=== PATIENT | female | born 1990 | race Caucasian/White ===

== ENCOUNTER 2017-06-19 11:03 | Emergency (ER) | payer MEDICAID ==
[2017-06-19 11:41] LABS: ADD MAN DIFF? NO
[2017-06-19 11:43] LABS: BASO % 1 % (0-3); EOS # 0.1 x10^3/uL (0.0-0.7); EOS % 1 % (0-3); HEMATOCRIT 47.3 % (36.0-47.0); HEMOGLOBIN 16.1 g/dL (12.0-15.5); LYMPH # 2.3 x10^3/uL (1.0-4.8); LYMPH % 23 % (24-48); MEAN CORPUSCULAR HEMOGLOBIN 32 pg (25-35); MEAN CORPUSCULAR HGB CONC 34 g/dL (31-37); MEAN CORPUSCULAR VOLUME 94 fL (79-100); MONO # 0.6 x10^3/uL (0.0-1.1); MONO % 6 % (0-9); NEUT # 7.1 x10^3uL (1.8-7.7); NEUT % 70 % (31-73); PLATELET COUNT 269 x10^3/uL (140-400); RED BLOOD COUNT 5.04 x10^6/uL (3.50-5.40); RED CELL DISTRIBUTION WIDTH 12.6 % (11.5-14.5); WHITE BLOOD COUNT 10.1 x10^3/uL (4.0-11.0)
[2017-06-19 12:01] LABS: PARTIAL THROMBOPLASTIN TIME 34 SEC (24-38); PROTHROMBIN TIME PATIENT 12.8 SEC (11.7-14.0)
[2017-06-19 12:03] LABS: ANION GAP 9 (6-14); BLOOD UREA NITROGEN 12 mg/dL (7-20); CALCIUM 8.4 mg/dL (8.5-10.1); CARBON DIOXIDE 27 mmol/L (21-32); CHLORIDE 103 mmol/L (98-107); CREATININE 0.8 mg/dL (0.6-1.0); GLUCOSE 88 mg/dL (70-99); POTASSIUM 3.9 mmol/L (3.5-5.1); SODIUM 139 mmol/L (136-145)
[2017-06-19 12:07] LABS: ALBUMIN 3.8 g/dL (3.4-5.0); ALK PHOS 61 U/L (46-116); ALT (SGPT) 20 U/L (14-59); AST (SGOT) 16 U/L (15-37); DIRECT BILIRUBIN 0.1 mg/dL (0.0-0.2); LIPASE 77 U/L (73-393); TOTAL BILIRUBIN 0.4 mg/dL (0.2-1.0); TOTAL PROTEIN 7.3 g/dL (6.4-8.2)
[2017-06-19 12:32] LABS: CKMB INDEX 0.5 % (0-4); CKMB MASS < 0.5 ng/mL (0.0-3.6); CREATINE KINASE 99 U/L (26-192)
[2017-06-19 12:48] LABS: BILIRUBIN,URINE NEGATIVE (NEG); CLARITY,URINE CLEAR; COLOR,URINE YELLOW; GLUCOSE,URINE NEGATIVE (NEG); NITRITE,URINE NEGATIVE (NEG); PROTEIN,URINE NEGATIVE (NEG-TRACE); UROBILINOGEN,URINE 0.2 mg/dL (0.2 mg/dL)
[2017-06-19 12:49] LABS: BACTERIA,URINE MANY /HPF (0-FEW); BARBITURATES NEG (NEG); BENZODIAZEPINES NEG (NEG); CANNABINOIDS POS (NEG); COCAINE NEG (NEG); METHADONE NEG (NEG); OPIATES NEG (NEG); PHENCYCLIDINE NEG (NEG); SQUAMOUS EPITHELIAL CELL,UR MANY /LPF
[2017-06-19 12:52] LABS: AMPHETAMINE/METHAMPHETAMINE NEG (NEG); ETHANOL, URINE NEG (NEG)
[2017-06-20 21:10] LABS: CHLAMYDIA PROBE Negative (Negative); GC PROBE Negative (Negative)
[2017-06-24 11:00] LABS: URINE HCG POC HCG NEGATIVE (Negative)
== END 2017-06-19 14:15 | disposition home or self-care (01) ==
LOC: ER 11:03
DX: N76.0 Acute vaginitis (principal); J45.909 Unspecified asthma, uncomplicated; Z90.49 Acquired absence of other specified parts of digestive tract; Z91.041 Radiographic dye allergy status
CPT/HCPCS: 36415; 80048; 80076; 80307; 81001; 81025; 82553; 83690; 85025; 85610; 85730; 87086; 87186; 87491; 87591; 99284; Q0111

== ENCOUNTER 2017-07-24 17:31 | Emergency (ER) | payer MEDICAID ==
[2017-07-24] MEDS: DIPHTH,PERTUSS(ACELL),TET TOX 0.5 ML DISP.SYRIN. VAX IM (18:23)
== END 2017-07-24 18:24 | disposition home or self-care (01) ==
LOC: ER 17:31
DX: L02.416 Cutaneous abscess of left lower limb (principal); J45.909 Unspecified asthma, uncomplicated; Z91.041 Radiographic dye allergy status; Z90.49 Acquired absence of other specified parts of digestive tract
CPT/HCPCS: 90471; 90715; 99283-25

== ENCOUNTER 2017-07-29 09:38 | Emergency (ER) | payer MEDICAID ==
[2017-07-29 10:36] LABS: AGAP ISTAT 16 mmol/L (6-14); BUN ISTAT 19 mg/dL (8-26); CHLORIDE ISTAT 107 mmol/L (98-110); GLUCOSE ISTAT 84 mg/dL (70-99); HEMATOCRIT ISTAT 46 % (36-40); HEMOGLOBIN ISTAT 15.6 g/dL (12-15); ION CA ISTAT 1.12 mmol/L (1.13-1.32); SODIUM ISTAT 140 mmol/L (135-145); TOT CO2 ISTAT 21 mmol/L (23-32)
[2017-07-29 11:32] LABS: BILIRUBIN,URINE SMALL (NEG); CLARITY,URINE CLEAR; COLOR,URINE AMBER; GLUCOSE,URINE NEGATIVE (NEG); NITRITE,URINE NEGATIVE (NEG); PH,URINE 5.5; PROTEIN,URINE NEGATIVE (NEG-TRACE)
[2017-07-29 11:45] LABS: BACTERIA,URINE 0 /HPF (0-FEW); RBC,URINE 0 /HPF (0-2); SQUAMOUS EPITHELIAL CELL,UR MANY /LPF; WBC,URINE 0 /HPF (0-4)
== END 2017-07-29 12:18 | disposition home or self-care (01) ==
LOC: ER 09:38
DX: L02.416 Cutaneous abscess of left lower limb (principal); J45.909 Unspecified asthma, uncomplicated; F17.200 Nicotine dependence, unspecified, uncomplicated; F10.10 Alcohol abuse, uncomplicated; Z91.041 Radiographic dye allergy status
CPT/HCPCS: 36415; 80047; 81001; 85014; 85018; 99283

== ENCOUNTER → 2020-12-08 | Outpatient (CLI) | payer MEDICAID, OTHER ==
[2017-07-29 12:17] VITALS: BP 117/57
[~2020-12-08] MED LIST: CIPR500T94 PO; METR500T PO; SULF1TAB24 PO
--- NOTE | 2020-12-08 15:59 | KCIC ---
EXAM: Pelvic sonogram. HISTORY: Pelvic cramping and vaginal bleeding. TECHNIQUE: Transabdominal and transvaginal sonographic imaging of the pelvis was performed. COMPARISON: None. FINDINGS: The uterus measures 8.6 x 5.0 x 4.3 cm. The endometrial stripe measures 2.2 mm in thickness . The right ovary is not seen. The left ovary is normal in size and demonstrates normal blood flow. T here are nabothian cysts within the cervix. There is no pelvic free fluid. IMPRESSION: 1. Thin endometrial stripe. 2. Obscured right ovary. The left ovary is unremarkable. 3. Incidental nabothian cysts within the cervix. Electronically signed by: Cassandra Hernandez MD (12/08/2020 3:57 PM) [id number]
== END ==
LOC: KCIC US 15:06
PROVIDERS: ATTEND Internal Medicine
DX: N88.8 Other specified noninflammatory disorders of cervix uteri (principal)
CPT/HCPCS: 76830; 76856

== ENCOUNTER 2021-03-20 08:27 | Emergency (ER) | payer OTHER ==
[~2021-03-20] VITALS: Ht 162.6 cm; Wt 82.1 kg
[2021-03-20 08:59] LABS: BASO # 0.1 x10^3/uL (0.0-0.2); BASO % 1 % (0-3); EOS # 0.2 x10^3/uL (0.0-0.7); EOS % 2 % (0-3); HEMATOCRIT 46.9 % (36.0-47.0); HEMOGLOBIN 16.5 g/dL (12.0-15.5); LYMPH # 2.9 x10^3/uL (1.0-4.8); LYMPH % 31 % (24-48); MEAN CORPUSCULAR HEMOGLOBIN 32 pg (25-35); MEAN CORPUSCULAR HGB CONC 35 g/dL (31-37); MEAN CORPUSCULAR VOLUME 90 fL (79-100); MONO # 0.6 x10^3/uL (0.0-1.1); MONO % 6 % (0-9); NEUT # 5.7 x10^3/uL (1.8-7.7); NEUT % 60 % (31-73); PLATELET COUNT 284 x10^3/uL (140-400); RED BLOOD COUNT 5.21 x10^6/uL (3.50-5.40); RED CELL DISTRIBUTION WIDTH 13.3 % (11.5-14.5); WHITE BLOOD COUNT 9.5 x10^3/uL (4.0-11.0)
--- NOTE | 2021-03-20 09:01 | RAD ---
INDICATION: Reason: cp / Spl. Instructions: / History: COMPARISON: February 2020 FINDINGS: Single view of chest obtained. Cardiac silhouette is unremarkable. Mild interstitial opacities bilaterally. No gross osseous destructive lesion. IMPRESSION: * Mild interstitial opacities bilaterally which could be from mild pulmonary vascular congestion or mild interstitial infiltrate. Electronically signed by: Lamonte Irvin MD (03/20/2021 8:59 AM) [id number]
--- NOTE | 2021-03-20 09:05 | PHYS DOC ---
Past Medical History Past Medical History: Asthma Past Surgical History: Cholecystectomy, Other Additional Past Surgical Histo: liver sx Smoking Status: Current Every Day Smoker Alcohol Use: Sober Drug Use: None General Adult EDM: Chief Complaint: CHEST PAIN HPI: HPI: 30 yo female past medical history of asthma with pneumothoraces, pancreatic division, and history of choledocholithiasis with liver stent and cholec ystectomy, presents the ED with complaints of " 5 days consecutive chest pain," described as intermittent and nonradiating. Patient describes the pain as pressure-like, cramping and squeezing located over her distal sternum. States chest pain woke her up this morning and lasted a few minutes. Reports pain currently is dull. Associated nausea and hot flashes. Has been vaccinated for Covid 4 months ago but 3 days after her vaccine tested positive for Covid. Mother with history of triple bypass and a heart attack in her 30s-"she told me to come here." No personal or family history of AAA, AAD, CTD (ehlos danlos or marfans), sudden or unexplainable (under 50 years of age or with exertion), or clotting disorders. Patient smokes tobacco but denies any alcohol, cocaine or IV drug use. Review of Systems: Review of Systems: Constitutional: Denies rigors or chills. [] Eyes: Denies change in visual acuity. [] HENT: Denies nasal congestion or sore throat. [] Respiratory: Denies cough or shortness of breath. [] Cardiovascular: Denies syncope or edema. [] GI: Denies abdominal pain,vomiting, bloody stools or diarrhea. [] : Denies dysuria or vaginal bleeding Musculoskeletal: Denies back pain or joint pain. [] Integument: Denies rash or blistering lesions Neurologic: Denies headache, focal weakness or sensory changes. [] Endocrine: Denies polyuria or polydipsia. [] Lymphatic: Denies swollen glands. [] Psychiatric: Denies depression or anxiety. [] Heart Score: C/O Chest Pain: Yes HEART Score for Chest Pain: HEART Score for Chest Pain Response (Comments) Value History Slighlty/Non-Suspicious 0 ECG Normal 0 Age < 45 0 Risk Factors 1 or 2 Risk Factors 1 Troponin < Normal Limit 0 Total 1 Risk Factors: Risk Factors: DM, Current or recent (<one month) smoker, HTN, HLP, family history of CAD, obesity. Risk Scores: Score 0 - 3: 2.5% MACE over next 6 weeks - Discharge Home Score 4 - 6: 20.3% MACE over next 6 weeks - Admit for Clinical Observation Score 7 - 10: 72.7% MACE over next 6 weeks - Early Invasive Strategies Allergies: Allergies: Allergies Coded Allergies Type Severity Reaction Last Updated Verified Iodinated Contrast Media Allergy Intermediate 06/19/17 Yes Physical Exam: PE: Constitutional: Well developed, well nourished, no acute distress, non-toxic appearance. HENT: Normocephalic, atraumatic, Eyes: EOMI, conjunctiva normal, no discharge. Neck: Normal range of motion, supple, Cardiovascular: S1/2 present, 104 on monitor during my evaluation Lungs & Thorax: Speaking in full sentences, bilateral equal chest rise, no tachypnea or increased work of breathing Abdomen: soft, no tenderness, Skin: Warm, dry, no erythema, no rash. [] Back: No tenderness, no CVA tenderness. [] Extremities: No tenderness, no cyanosis, no lower extremity edema Neurologic: Alert and oriented X 3, normal motor function, normal sensory function, no focal deficits noted. [] Psychologic: Affect normal, judgement normal, mood normal. [] EKG: EK Sinus rhythm 81 bpm, right axis deviation, normal intervals, no T wave inversion, no ST elevation or ST depression 0918 sinus rhythm 74 bpm, NAD, normal intervals, no T wave inversion, no ST elevation or ST depression Radiology/Procedures: Radiology/Procedures: IMAGING REPORT Signed PATIENT: LORRIE FOUNTAIN ACCOUNT: [id number] : 1990 LOCATION: ER AGE: 30 SEX: F EXAM STATUS: PRE ER ORD. PHYSICIAN: LINNETTE SNYDER DO REASON: cp PROCEDURE: PORTABLE CHEST 1V INDICATION: Reason: cp / Spl. Instructions: / History: COMPARISON: February 2020 FINDINGS: Single view of chest obtained. Cardiac silhouette is unremarkable. Mild interstitial opacities bilaterally. No gross osseous destructive lesion. IMPRESSION: * Mild interstitial opacities bilaterally which could be from mild pulmonary vascular congestion or mild interstitial infiltrate. Electronically signed by: Delaney Mock MD (03/20/2021 8:59 AM) [id number] DICTATED and SIGNED BY: DELANEY MOCK MD DATE: 03/20/21 [id number] 0 Course & Med Decision Making: Course & Med Decision Making Pertinent Labs and Imaging studies reviewed. (See chart for details) Concern for atypical chest pain for the past 5 days. Patient also reports she wakes up in the middle night choking, feeling as if she cannot breathe -these symptoms have been going on for approximately 2 years and she has a sleep study pending next week. ED work-up has been grossly unremarkable. Negative troponin x2, D-dimer within normal limits, no hematuria or UTI symptoms and patient is hemodynamically stable with no hypoxia, fever or tachycardia. Chest x-ray with abnormal findings of interstitial opacities which could be patient's prior Covid vs infiltrate vs edema. Will prescribe azithromycin to treat for infiltrate. My suspicion for early CHF/pulm edema is very low given patient's physical exam, no cardiomegaly on chest x-ray and chronicity of symptoms. 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 Will discharge home with strict ED return precautions were given for worsening shortness of breath, chest pressure, syncope or neurologic deficits. Encouraged urgent outpatient follow-up with PMD and cardiology. Life-threatening processes were considered but are low suspicion at this time, given history, physical exam and ED workup. Pt was educated on all prescription medications and adverse effects. All patient's questions were answered and pt was stable at time of discharge. Life/limb-threatening differential includes but is not limited to, acute myocardial infarction, aortic dissection, congestive heart failure, esophageal injury including rupture, surgical abdomen, arrhythmia, cardiomyopathy, myocarditis, pericarditis, peptic ulcer disease, pneumomediastinum, pneumonia, pneumothorax, pulmonary embolus, unstable angina, rib fracture, contusion, pericardial tamponade or effusion, traumatic injury including mediastinal hemorrhage or hematoma, or pulmonary contusion. I have spoken with the patient and/or caregivers. I explained the patient's condition, diagnoses and treatment plan based on the information available to me at this time. I have answered the patient and/or caregiver's questions and addressed any concerns. The patient and/or caregivers have a good understanding of patient's diagnosis, condition and treatment plan as can be expected at this point. Vital signs have been stable. Patient's condition is stable and appropriate for discharge from the emergency department. Patient will pursue further outpatient evaluation with primary care physician or other designated or consulting physician as outlined in the discharge instructions. The patient and/or caregivers are agreeable to this plan of care and follow-up instructions have been explained in detail. The patient and/or caregivers have received these instructions in written form and have expressed an understanding of the discharge instructions. The patient and/or caregivers are aware that any significant change of condition or worsening of symptoms should prompt immediate return to this or the closest emergency department or call to 1. Leilani Disclaimer: Leilani Disclaimer: This electronic medical record was generated, in whole or in part, using a voice recognition dictation system. Departure Departure Impression: Primary Impression: Chest pain Additional Impression: Abnormal chest xray Disposition: HOME / SELF CARE / HOMELESS Condition: STABLE Referrals: MELLY LEMUS MD (PCP) Follow-up with your primary care physician in 24 to 48 hours OR FOLLOW UP WITH FAMILY MEDICINE: [address] [facility] [facility] [address] [place] [address] Patient Instructions: Chest Pain (Nonspecific) Additional Instructions: FOLLOW UP WITH CARDIOLOGY: FOR DEFINITIVE MANAGEMENT for nonemergent chest pain [facility] [address] [place] [address] EMERGENCY DEPARTMENT GENERAL DISCHARGE INSTRUCTIONS Thank you for coming to [facility] Emergency Department (ED) today and trusting us with you care. We trust that you had a positive experience in our Emergency Department. If you wish to speak to the department management, you may call the Director at [phone]. YOUR FOLLOW UP INSTRUCTIONS ARE FOLLOWS: 1. Do you have a private Doctor? If you do not have a private doctor, please ask for a resource list of physicians or clinics that may be able to assist you with follow up care. 2. The Emergency Physicain has interpreted your x-rays. The X-Ray specialist will also review them. If there is a change in the findings, you will be notified in 48 hours when at all possible. 3. A lab test or culture has been done, your results will be reviewed and you will be notified if you need a change in treatment. ADDITIONAL INSTRUCTIONS AND INFORMATION: 1. Your care today has been supervised by a physician who is specially trained in emergency care. Many problems require more than one evaluation for a complete diagnosis and treatment. We recommend that you schedule your follow up appointment as recommended to ensure complete treatment of you illness or injury. If you are unable to obtain follow up care and continue to have a problem, or if your condition worsens, we recommend that you return to the ED. 2. We are not able to safely determine your condition over the phone nor are we able to give sound medical advice over the phone. For these safety reasons, if you call for medical advice we will ask you to come to the ED for further evaluation. 3. If you have any questions regarding these discharge instructions please call the ED at [phone]. SAFETY INFORMATION: In the interest of safety, wellness, and injury prevention; we encourage you to wear your sealbelt, if you smoke; quite smoking, and we encourage family to use a protective helmet for bicycling and other sporting events that present an increased risk for head injury. IF YOUR SYMPTOMS WORSEN OR NEW SYMPTOMS DEVELOP, OR YOU HAVE CONCERNS ABOUT YOUR CONDITION; OR IF YOUR CONDITION WORSENS WHILE YOU ARE WAITING FOR YOUR FOLLOW UP APPOINTMENT; EITHER CONTACT YOUR PRIMARY CARE DOCTOR, THE PHYSICIAN WHOSE NAME AND NUMBER YOU WERE GIVEN, OR RETURN TO THE ED IMMEDIATELY. Scripts Azithromycin (ZITHROMAX) 250 Mg Tablet 1 PKG PO UD, #6 TAB Prov: LINNETTE SNYDER DO 03/20/21 LINNETTE SNYDER DO Mar 20, 2021 09:05
[2021-03-20 09:06] LABS: CALCIUM 8.5 mg/dL (8.5-10.1); CREATININE 0.9 mg/dL (0.6-1.0); POTASSIUM 3.7 mmol/L (3.5-5.1)
[2021-03-20 09:14] LABS: ALBUMIN 3.8 g/dL (3.4-5.0); MAGNESIUM 1.9 mg/dL (1.8-2.4); TOTAL BILIRUBIN 0.3 mg/dL (0.2-1.0); TOTAL PROTEIN 7.5 g/dL (6.4-8.2)
[2021-03-20 09:35] LABS: PREG TEST PT QUAL NEGATIVE (NEG)
[2021-03-20] MEDS ORDERED: KETOROLAC 15 MG/ML VIAL. IVP ONE (10:30)
[2021-03-20 10:46] LABS: BILIRUBIN,URINE NEGATIVE (NEG); CLARITY,URINE CLOUDY; COLOR,URINE YELLOW; NITRITE,URINE NEGATIVE (NEG); PROTEIN,URINE NEGATIVE (NEG-TRACE); UROBILINOGEN,URINE 0.2 mg/dL (0.2 mg/dL)
[2021-03-20 10:55] LABS: AMPHETAMINE/METHAMPHETAMINE NEG (NEG); BARBITURATES NEG (NEG); BENZODIAZEPINES NEG (NEG); CANNABINOIDS NEG (NEG); COCAINE NEG (NEG); METHADONE NEG (NEG); OPIATES NEG (NEG); PHENCYCLIDINE NEG (NEG)
[2021-03-20 11:10] LABS: AMORPHOUS SEDIMENT,UR PRESENT /HPF; BACTERIA,URINE FEW /HPF (0-FEW); RBC,URINE 0 /HPF (0-2)
[2021-03-20] MEDS ORDERED: AZIT250T PO (13:51)
[2021-03-20 14:11] VITALS: BP 121/73
--- NOTE | 2021-03-21 02:33 | EKG ---
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
--- NOTE | 2021-03-21 02:34 | EKG ---
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
== END 2021-03-20 14:59 | disposition home or self-care (01) ==
LOC: ER 08:27
DX: R07.89 Other chest pain (principal); R91.8 Other nonspecific abnormal finding of lung field; J45.909 Unspecified asthma, uncomplicated; F17.200 Nicotine dependence, unspecified, uncomplicated; Z91.041 Radiographic dye allergy status
CPT/HCPCS: 36415; 71045; 80053; 80307; 81001; 81025; 83690; 83735; 83880; 84484; 84703; 85025; 85379; 87086; 93005; 96374; 99285; J1885

== ENCOUNTER → 2021-03-22 | Outpatient (CLI) | payer OTHER ==
[2021-03-20 14:11] VITALS: BP 121/73
[~2021-03-22] MED LIST changes: +AZIT250T PO
--- NOTE | 2021-03-23 12:47 | CARD ---
MR#: [id number] Date of Study: 03/22/2021 Ordering Physician: MELLY LEMUS, Referring Physician: MELLY LEMUS, Tech: Naty Perez [facility] APPROVED REPORT INDICATION Dyspnea Chest Pain RISK FACTORS Obesity Reason : Patient complained of pain PROCEDURE The patient underwent an Exercise Stress Test using the Domenico Protocol. Blood pressure, heart rate, a nd EKG were monitored. An Echocardiogram was performed by civil laboratory technician in four stages in quad fashion. At peak stress four se lected images were obtained and placed side by side with resting images for comparison. STRESS ECHO FINDINGS The resting Echocardiogram showed normal left ventricular systolic contractility with an estimated Ej ection Fraction of about 55 %. The Resting Echocardiogram showed normal augmentation of myocardial wall segments using a 16 segment model. The Stress Echocardiogram showed normal augmentation of myocardial wall segments using a 16 segment m pina. The Stress Echocardiogram left ventricular systolic contractility has an estimated Ejection Fraction of about 70%. Test Type: Exercise Stress Nurse/Tech: Meghann Schultz RN Test Indications: Chest pain and shortness of air Cardiac History and Allergies: No known cardiac Medications: see EMR Medical History: see EMR Resting ECG: SR Resting Heart Rate: 87 bpm Resting Blood Pressure: 142/77mmHg Pretest Chest Pain: No chest pain Nurse/Tech Notes S1,S2 and lungs diminished throughout all lobes. Patient stated she used her inhaler prior to having her echo done. Patient also stated that she had COVID shortly after her first vaccination shot and dumont s had the shortness of air and chest pain since then. Manual blood pressure cuff wasn't working prop erly during stress portion of study. Patient stated that previous chest pain was on the left but tod ay her chest pain/pressure was midsternum. Stress Symptoms Dyspnea,Flushing,Fatigue POST EXERCISE Reason for Termination: Chest pain, Dyspnea, Fatigue Target HR: Yes Max HR: 175 bpm 93% of Maximum Predicted HR: 189 bpm Exercise duration: 9:24 min:sec, 4 Stage Exercise capacity: 10.1METs Max Blood Pressure: 164/67mmHg Heart Rate response to exercise: WNL Chest Pain: Yes. patient stated she had midsternal chest pain that felt different then her previous c hest pain (08/20) Arrhythmia: No. ST Change: No. INTERPRETATION Stress EKG Conclusion: The baseline EKG shows a sinus rhythm with mild nonspecific ST-T wave changes. The stress EKG shows no significant changes from baseline. No EKG evidence of stress-induced ischemia. <Conclusion> Good exercise tolerance with the patient walking for 9 minutes and 24 seconds on a Domenico protocol. No EKG evidence of stress-induced ischemia. The resting ECHO shows normal LV systolic function. The stress ECHO shows normal response to exertion with no regional wall motion abnormalities and no e vidence of ischemia. Low risk treadmill stress echo. Signed by : Axel Loya MD Electronically Approved : 03/23/2021 12:46:40
== END ==
LOC: ECHO 12:34
PROVIDERS: ATTEND Internal Medicine
DX: R07.9 Chest pain, unspecified (principal); R06.00 Dyspnea, unspecified; R11.0 Nausea; R93.89 Abnormal findings on diagnostic imaging of other specified body structures; Z09 Encounter for follow-up examination after completed treatment for conditions other than malignant neoplasm; Z83.430 Family history of elevated lipoprotein(a); Z82.49 Family history of ischemic heart disease and other diseases of the circulatory system; Z86.16 Personal history of COVID-19
CPT/HCPCS: 93017; 93350

== ENCOUNTER → 2021-03-29 | Outpatient (CLI) | payer OTHER ==
[2021-03-20 14:11] VITALS: BP 121/73
--- NOTE | 2021-03-30 08:55 | SLEEP ---
DATE OF STUDY: 03/29/2021 HOME SLEEP STUDY ATTENDING PHYSICIAN: Dr. Oscar Cisse. The patient is 30-year-old who weighs 180 pounds with a BMI of 30.9. The patient's [place] score was 16. The patient underwent home sleep study performed at [facility]. Total recording time was 564 minutes. During the night study, the patient had 44 obstructive apneas, 4 central apneas, 8 mixed apneas and 16 hypopneas. The patient's AHI was 19.5 per hour. The patient had signs of upper airway resistance syndrome throughout the night. Nocturnal oximetry study revealed a mean oxygen saturation 94% with a lowest of 89%. Mean heart rate 80 beats per minute with a maximum of 112 beats per minute. IMPRESSION: 1. Moderate obstructive sleep apnea at an apnea-hypopnea index of 19.5 per hour. 2. No significant nocturnal hypoxia. RECOMMENDATIONS: 1. The patient is clinically symptomatic with an Little Neck score of 16. The patient would benefit from return to the Sleep Lab for CPAP titration study. Alternatively, auto CPAP can be arranged. 2. Once the patient is optimally treated with CPAP, then follow up in 4-6 weeks to assess compliance and to document clinical improvement. 3. Weight loss is advised. 4. Avoid DEBONE SUPERVISOR depressants. 5. Cautioned regarding driving until symptoms of sleep apnea resolve with above recommendations. BIANCA DR: Mona TID: [id number] CC: OSCAR CISSE MD
== END ==
LOC: RT 11:15
PROVIDERS: ATTEND Internal Medicine Pulmonary Disease
DX: G47.33 Obstructive sleep apnea (adult) (pediatric) (principal); R06.83 Snoring
CPT/HCPCS: G0399

== ENCOUNTER → 2021-05-01 | Outpatient (CLI) | payer OTHER ==
--- NOTE | 2021-05-03 14:57 | SLEEP ---
DATE OF STUDY: 05/01/2021 SLEEP STUDY REFERRING PHYSICIAN: Josefina Quezada MD. The patient is a 30-year-old who weighs 180 pounds with a BMI of 30.8. The patient had a sleep study and was found to have moderate NOEMI at an AHI of 19.5 per hour. The patient returned for in-lab CPAP titration study. During the night study, the patient spent 526 minutes in bed and slept for 483 minutes with a sleep efficiency of 92%. Sleep latency was 14 minutes with a REM latency of 331 minutes. Sleep architecture showed normal stage 1 sleep, increased stage 2 sleep, normal REM sleep. The patient was started on CPAP at 5 cm water and titrated up to 15 cm water. At the final pressure, the patient slept for 156 minutes. The patient's AHI was reduced to 2 per hour. The patient had lateral REM sleep. Oxygen saturation remained above 91%. PLMs were seen at index of 101 per hour and 6 per hour caused EEG arousals. EKG monitoring revealed an average heart rate of 79 beats per minute. No sustained arrhythmias observed. IMPRESSION: 1. Moderate sleep apnea diagnosed by home sleep study. 2. Severe periodic limb movements. RECOMMENDATIONS: 1. CPAP at 15 cm water completely eliminated the patient's sleep apnea and should be used on a nightly basis. 2. Follow up in 4-6 weeks to assess compliance with CPAP and to document clinical improvement. 3. Weight loss is advised. 4. Avoid COMPUTATIONAL MATHEMATICIAN depressants. 5. Cautioned regarding driving until symptoms of sleep apnea resolve with the use of CPAP. 6. The patient has severe PLMs. The patient should be further evaluated for symptoms of restless legs during the day. BRITTANIE/BENITA DR: Mona TID: [id number] CC: JOSEFINA QUEZADA MD
== END ==
LOC: RT 19:00
PROVIDERS: ATTEND Internal Medicine
DX: G47.30 Sleep apnea, unspecified (principal); G47.10 Hypersomnia, unspecified; R06.83 Snoring
CPT/HCPCS: 95811